=== PATIENT | female | born 2000 | race African-American/Black ===

== ENCOUNTER 2025-03-31 12:47 | Emergency (ER) | payer MEDICAID ==
[~2025-03-31] VITALS: Ht 162.6 cm; Wt 47.0 kg
[2025-03-31 13:05] VITALS: O2SAT 100
[2025-03-31] MEDS: MORPHINE SULFATE 4 MG/ML INJ (FOR IV/IM USE) IV ONE (14:45)
[2025-03-31] MEDS: SODIUM CHLORIDE 0.9% 1,000 ML IV ONE (14:59)
[2025-03-31] MEDS: FAMOTIDINE 20MG/2ML VIAL IV ONE (14:59)
[2025-03-31] MEDS: ACETAMINOPHEN 325MG TABLET PO SCH (14:59)
[2025-03-31 15:08] LABS: BASOPHILS % 0.5 % (0.0-2.0); EOSINOPHILS % 1.3 % (0.0-5.0); HEMATOCRIT. 37.0 % (36.0-48.0); HEMOGLOBIN. 11.6 g/dL (12.0-16.0); LYMPHOCYTES % 12.4 % (20.0-50.0); MEAN PLATELET VOLUME 9.0 fl (7.4-10.4); MONOCYTES % 6.2 % (2.0-8.0); NEUTROPHILS % 79.6 % (40.0-76.0); PLATELET 284 x1000/uL (130-400); RED BLOOD CELL COUNT 5.12 mill/uL (4.2-5.4); RED CELL DISTRIBUTION WIDTH 18.3 % (11.6-14.6)
[2025-03-31 15:09] LABS: CLARITY URINE CLOUDY (CLEAR); COLOR URINE YELLOW (YELLOW); GLUCOSE URINE NEGATIVE (NEGATIVE); KETONES URINE TRACE (NEGATIVE); LEUKOCYTE ESTERASE URINE TRACE (NEGATIVE); NITRITE URINE NEGATIVE (NEGATIVE); OCCULT BLOOD URINE NEGATIVE (NEGATIVE); PH URINE 6.0 (4.5-8.0); PROTEIN URINE 1+ (NEGATIVE); SPECIFIC GRAVITY URINE 1.020 (1.005-1.030); UROBILINOGEN URINE 0.2 E.U./dL (0.2-1.0)
[2025-03-31 15:16] LABS: CREATININE 0.7 mg/dL (0.6-1.0)
[2025-03-31 15:17] LABS: UREA NITROGEN BLOOD < 5 mg/dL (9-23)
[2025-03-31 15:18] LABS: ASPARTATE AMINOTRANSFERASE 25 IU/L (<34)
[2025-03-31 15:19] LABS: BILIRUBIN DIRECT 0.1 mg/dL (<=3.0); BILIRUBIN TOTAL 0.5 mg/dL (0.1-1.0); PROTEIN TOTAL 6.9 g/dL (6.0-8.3)
[2025-03-31 15:22] LABS: *AMPHETAMINES SCREEN URINE NEGATIVE (NEGATIVE); *BARBITURATES SCREEN URINE NEGATIVE (NEGATIVE); *BENZODIAZEPINES SCREEN URINE NEGATIVE (NEGATIVE); *COCAINE SCREEN URINE NEGATIVE (NEGATIVE); CANNABINOID URINE SCREEN PRESUMPTIVE POSITIVE (NEGATIVE); ECSTASY MDMA SCREEN URINE NEGATIVE (NEGATIVE); METHADONE URINE SCREEN NEGATIVE (NEGATIVE); OPIATES URINE SCREEN NEGATIVE (NEGATIVE); PHENCYCLIDINE URINE SCREEN NEGATIVE (NEGATIVE)
[2025-03-31 15:24] LABS: HCG SCREEN POSITIVE
[2025-03-31 16:00] LABS: INFLUENZA TYPE A Presumptive Negative (Pres. Neg.)
[2025-03-31 16:01] LABS: INFLUENZA TYPE B Presumptive Negative (Pres. Neg.); RESPIRATORY SYNCYTIAL VIRUS Not Detected (Not Detectd)
[2025-03-31 16:04] LABS: BACTERIA URINE 1+; RBC URINE 0-2 /hpf (0-2); SQUAMOUS EPITHELIAL CELL URINE 1+ /lpf (RARE/1+)
[2025-03-31 16:05] LABS: MUCUS URINE 2+ /lpf (< = 2+); YEAST URINE NONE SEEN
[2025-03-31] MEDS ORDERED: ONDA-239 PO (17:31)
[2025-03-31] MEDS ORDERED: CEPH500T MT (17:31)
[2025-03-31 17:43] VITALS: BP 131/79; PULSE 82; RESP 18; TEMP 36.7; O2SAT 100
== END 2025-03-31 17:44 | disposition home or self-care (01) ==
LOC: ER 12:47
DX: O23.41 Unspecified infection of urinary tract in pregnancy, first trimester (principal); O21.0 Mild hyperemesis gravidarum; Z3A.01 Less than 8 weeks gestation of pregnancy; Z20.822 Contact with and (suspected) exposure to COVID-19; Z98.890 Other specified postprocedural states
CPT/HCPCS: 80076; 80305; 80048; 81003; 81025; 80320; 84703; 84702; 83690; 85025; 87420; 87804 ×2; 36415; 76801; 96361; 96374; 99285; 87426; J1308; J7030; Z7610 ×2; G0480